=== PATIENT | female | born 1980 ===

== ENCOUNTER 2020-04-19 16:53 | Outpatient (REF) | payer BC, SELFPAY ==
[2020-04-22 16:10] LABS: SARS-CoV-2 RNA Undetected (Undetected); SARS-CoV-2 Specimen Source Nasal
== END 2020-04-19 17:13 ==
LOC: NCHCN 16:53
PROVIDERS: PCP Family Medicine; Visit Provider Nurse Practitioner Community Health
DX: R05 Cough (principal)
CPT/HCPCS: U0003

== ENCOUNTER 2020-06-16 11:59 | Outpatient (REF) | payer BC, SELFPAY ==
[2020-06-16 22:23] LABS: HCT 47.1 % (36.0-46.0); HGB 15.7 g/dL (11.2-15.7); MCH 33.2 pg (27.0-33.0); MCHC 33.3 % (32.0-36.0); MCV 99.6 fL (80-95); Platelet Count 298 10^3/uL (130-400); RBC 4.73 10^6/uL (3.93-5.22); RDW 11.5 % (11.7-14.6); WBC 6.34 10^3/uL (4.4-10.8)
[2020-06-16 22:50] LABS: ALT 26 U/L (14-59); AST 18 U/L (15-37); Albumin 4.6 g/dL (3.4-5.0); Alkaline Phosphatase 55 U/L (46-116); Anion Gap 11.1 mmol/L (3-11); BUN 9 mg/dL (7-18); Bilirubin, Total 0.6 mg/dL (0.2-1.0); CO2 24.9 mmol/L (21.0-32.0); CREATININE 0.88 mg/dL (0.55-1.02); Calcium 9.3 mg/dL (8.5-10.1); Chloride 103 mmol/L (98-107); Glucose 76 mg/dL (74-106); Potassium 4.2 mmol/L (3.5-5.1); Sodium 139 mmol/L (136-145); TSH (W/Ref FT4) 1.73 uIU/mL (0.36-3.74); Total Protein 8.4 g/dL (6.4-8.2)
[2020-07-01 15:26] LABS: Folate 9.7 mcg/L
[2020-07-01 15:29] LABS: Vitamin B12 351 ng/L
== END 2020-06-16 12:19 ==
LOC: NCHCN 11:59
PROVIDERS: PCP Family Medicine; Visit Provider Nurse Practitioner Community Health
DX: R71.8 Other abnormality of red blood cells (principal); F31.30 Bipolar disorder, current episode depressed, mild or moderate severity, unspecified
CPT/HCPCS: 80053; 85027; 82607; 82746; 84443

== ENCOUNTER 2021-03-02 15:02 | Outpatient (REF) | payer BC, SELFPAY ==
--- NOTE | 2021-03-02 09:00 | PAPFT_PTH ---
PATIENT: Sharifa Jackson LOC: [facility]#:[id number] AGE/SX: 40/F ROOM: RE03/02/[address]: Helene Richardson : 1980 BED: DIS: 03/02/2021 SPEC #: [id number] RECD: 03/02/21 18:15 STATUS: LORE REAlvin #: [id number] MICHAEL: 03/02/21 09:[address]: Helene Richardson [facility]PT[facility] Cytology RECD BY: Mely Bowen ENTERED: 03/02/21 18:15 SP TYPE: PAPFT OTHR DR: Davide Patricia Tissues: 1 - CX/ENDOCX FOR PAP SMEARS Procedures: PAP THIN PREP/[facility] Screening HPV DNA PROBE Comments: [id number]
== END 2021-03-02 15:03 | disposition home or self-care (01) ==
LOC: NCHCN 15:02
PROVIDERS: PCP Family Medicine; Visit Provider Nurse Practitioner Community Health
DX: Z00.00 Encounter for general adult medical examination without abnormal findings (principal); Z12.4 Encounter for screening for malignant neoplasm of cervix; Z11.51 Encounter for screening for human papillomavirus (HPV)
CPT/HCPCS: 88142; 87624

== ENCOUNTER 2022-06-12 13:46 | Outpatient (REF) | payer BC, SELFPAY ==
[2022-06-12 22:15] LABS: Abs Immature Grans 0.01 10^3/uL (0.0-0.06); Absolute Basophil Count 0.09 10^3/uL (0.0-0.2); Absolute Eosinophil Count 0.07 10^3/uL (0.0-0.7); Absolute Lymphocyte Count 2.17 10^3/uL (1.2-3.4); Absolute Monocyte Count 0.72 10^3/uL (0.1-0.8); Absolute Neutrophil Count 4.27 10^3/uL (1.2-6.7); Basophils % 1.2; HCT 42.8 % (36.0-46.0); HGB 14.1 g/dL (11.2-15.7); Immature Grans % 0.1; Lymphocytes % 29.6; MCHC 32.9 % (32.0-36.0); MCV 100 fL (80-95); MPV 10.3 fL (8.0-11.0); Monocytes % 9.8; Neutrophils % 58.3; Platelet Count 277 10^3/uL (130-400); RBC 4.27 10^6/uL (3.93-5.22); RDW 11.4 % (11.7-14.6); RDW-SD 41.7 fL; WBC 7.33 10^3/uL (4.4-10.8)
[2022-06-12 22:34] LABS: Hemoglobin A1C 5.2 % (<5.7)
[2022-06-12 22:49] LABS: ALT 17 U/L (14-59); AST 18 U/L (15-37); Albumin 4.3 g/dL (3.4-5.0); Alkaline Phosphatase 61 U/L (46-116); Anion Gap 7.9 mmol/L (3-11); BUN 9 mg/dL (7-18); Bilirubin, Total 0.4 mg/dL (0.2-1.0); CO2 27.1 mmol/L (21.0-32.0); CREATININE 0.8 mg/dL (0.55-1.02); Calcium 9.1 mg/dL (8.5-10.1); Calculated LDL 106 mg/dL (<100); Chloride 105 mmol/L (98-107); Cholesterol 212 mg/dL (<200); Estimated GFR 94.28 (mL/min/1.73m2); Glucose 83 mg/dL (74-106); HDL Cholesterol 89 mg/dL (40-60); Potassium 3.9 mmol/L (3.5-5.1); Sodium 140 mmol/L (136-145); Triglyceride 87 mg/dL (<150)
== END 2022-06-12 13:47 | disposition home or self-care (01) ==
LOC: NCHCN 13:46
PROVIDERS: PCP Family Medicine; Visit Provider Nurse Practitioner Family
DX: Z00.00 Encounter for general adult medical examination without abnormal findings (principal); Z13.0 Encounter for screening for diseases of the blood and blood-forming organs and certain disorders involving the immune mechanism; Z13.1 Encounter for screening for diabetes mellitus; Z13.228 Encounter for screening for other metabolic disorders; Z13.220 Encounter for screening for lipoid disorders
CPT/HCPCS: 80053; 80061; 83036; 85025